=== PATIENT | male | born 1980 | race Two or more races ===

== ENCOUNTER 2016-09-06 05:08 | Inpatient (IN) | payer MEDICAID ==
[~2016-09-06] VITALS: Ht 177.8 cm; Wt 63.1 kg
[~2016-09-06 05:08] MED LIST: INSU100I18 SQ-INSULIN; INSU100I28 SQ-INSULIN; INSU100V8 SQ; INSULIN
[2016-09-06] MEDS: SODIUM CHLORIDE 0.9% 1,000 ML IV SCH ×6 (05:20→17:20)
[2016-09-06] MEDS ORDERED: ONDANSETRON 2MG/ML, 2ML ONE (05:27)
[2016-09-06] MEDS ORDERED: SODIUM CHLORIDE 0.9% 1,000ML IVBOLUS ONE ×2 (05:30→06:00)
[2016-09-06] MEDS ORDERED: SODIUM CHLORIDE FLUSH 10ML SYR IVF ONE (05:30)
[2016-09-06] MEDS ORDERED: ONDANSETRON 2MG/ML, 2ML IVPush ONE (05:30)
[2016-09-06 06:02] LABS: HEMOGLOBIN 15.3 g/dL (13.7-18.0)
[2016-09-06 06:14] LABS: ASPARTATE AMINO TRANSFERASE 20 U/L (15-37); BLOOD UREA NITROGEN 23 mg/dL (7-18)
[2016-09-06 06:48] LABS: DAU SCREEN DISCLAIMER
[2016-09-06] MEDS ORDERED: SODIUM CHLORIDE FLUSH 10ML SYR IVF PRN (07:00)
[2016-09-06 07:10] LABS: PATH.CAST-FLAG NOT PRESENT; SPERM-FLAG NOT PRESENT; SRC-FLAG NOT PRESENT; XTAL-FLAG NOT PRESENT; YLC-FLAG NOT PRESENT
[2016-09-06] MEDS ORDERED: MORPHINE SULFATE 4 MG/ML, 1ML IVPush PRN (08:00)
[2016-09-06] MEDS: POTASSIUM CHLORIDE 10 MEQ in SODIUM CHLORIDE 0.9% 1,000 ML IV SCH ×3 (08:00→22:21)
[2016-09-06] MEDS ORDERED: HYDROcodone/APAP 5/325 TABLET PO PRN (08:00)
[2016-09-06] MEDS ORDERED: ONDANSETRON 2MG/ML, 2ML IVP PRN (08:00)
[2016-09-06] MEDS ORDERED: GUAIFENESIN/DM 200-20MG, 10ML UDC PO PRN (08:00)
[2016-09-06] MEDS ORDERED: TEMAZEPAM 15 MG CAPSULE PO PRN (08:00)
[2016-09-06] MEDS: FAMOTIDINE 20 MG/2 ML IV SCH ×2 (08:36→22:02)
[2016-09-06] MEDS: INSULIN ASPART 100 UNITS/ML, PEN SQ-INSULIN SCH ×4 (08:36→19:27)
[2016-09-06] MEDS: ENOXAPARIN 40 MG/0.4 ML SQ SCH (08:38)
[2016-09-06 11:00] LABS: BLOOD UREA NITROGEN 17 mg/dL (7-18)
[2016-09-06 19:30] VITALS: BP 126/69
[2016-09-06] MEDS ORDERED: INSULIN ASPART 100 UNITS/ML, PEN SQ-INSULIN ONE (20:00)
[2016-09-06] MEDS ORDERED: SODIUM CHLORIDE 0.9%, 500ML IVBOLUS ONE (20:00)
[2016-09-06] MEDS: INSULIN DETEMIR 100 UNITS/ML, PEN SQ-INSULIN SCH (22:02)
[2016-09-07 02:03] VITALS: BP 115/71
[2016-09-07] MEDS: POTASSIUM CHLORIDE 10 MEQ in SODIUM CHLORIDE 0.9% 1,000 ML IV SCH ×2 (04:03→12:32)
[2016-09-07] MEDS: FAMOTIDINE 20 MG/2 ML IV SCH ×2 (07:47→19:47)
[2016-09-07] MEDS: INSULIN ASPART 100 UNITS/ML, PEN SQ-INSULIN SCH ×4 (07:47→19:48)
[2016-09-07] MEDS: ENOXAPARIN 40 MG/0.4 ML SQ SCH (07:47)
[2016-09-07 08:00] VITALS: BP 137/79
[2016-09-07 10:06] LABS: BLOOD UREA NITROGEN 11 mg/dL (7-18)
[2016-09-07 13:00] VITALS: BP 132/72
[2016-09-07 19:19] VITALS: BP 126/68
[2016-09-07] MEDS: INSULIN DETEMIR 100 UNITS/ML, PEN SQ-INSULIN SCH (19:48)
[2016-09-08 01:35] VITALS: BP 128/69
[2016-09-08] MEDS: POTASSIUM CHLORIDE 10 MEQ in SODIUM CHLORIDE 0.9% 1,000 ML IV SCH (02:47)
[2016-09-08 05:14] LABS: HEMOGLOBIN 12.3 g/dL (13.7-18.0)
[2016-09-08 05:19] LABS: BLOOD UREA NITROGEN 17 mg/dL (7-18)
[2016-09-08] MEDS: INSULIN ASPART 100 UNITS/ML, PEN SQ-INSULIN SCH ×4 (07:00→21:53)
[2016-09-08 07:09] VITALS: BP 127/68
[2016-09-08] MEDS: ENOXAPARIN 40 MG/0.4 ML SQ SCH (07:58)
[2016-09-08] MEDS: FAMOTIDINE 20 MG/2 ML IV SCH (07:58)
[2016-09-08 11:50] LABS: BLOOD UREA NITROGEN 12 mg/dL (7-18)
[2016-09-08] MEDS ORDERED: POTASSIUM CHLORIDE 20 MEQ TAB.ER.PRT PO ONE (13:00)
[2016-09-08 13:25] VITALS: BP 130/72
[2016-09-08 19:22] VITALS: BP 116/67
[2016-09-08] MEDS: INSULIN DETEMIR 100 UNITS/ML, PEN SQ-INSULIN SCH (21:54)
[2016-09-09 01:23] VITALS: BP 122/65
[2016-09-09 07:53] VITALS: BP 126/72
[2016-09-09] MEDS: INSULIN ASPART 100 UNITS/ML, PEN SQ-INSULIN SCH ×2 (08:22→11:34)
[2016-09-09] MEDS: ENOXAPARIN 40 MG/0.4 ML SQ SCH (08:23)
[2016-09-09 10:48] LABS: BLOOD UREA NITROGEN 12 mg/dL (7-18)
[2016-09-09] MEDS ORDERED: INSU100V8 SQ (11:30)
[2016-09-09 13:21] VITALS: BP 130/80
== END 2016-09-09 14:47 | disposition home or self-care (01) | DRG 637 ==
LOC: ED 05:22 → EDIP 06:40 → 3NE 07:40 → DCLOUNGE 09-09 14:30
PROVIDERS: ADMIT Internal Medicine; ATTEND Internal Medicine
DX: E10.10 Type 1 diabetes mellitus with ketoacidosis without coma (principal); N17.0 Acute kidney failure with tubular necrosis; E87.6 Hypokalemia; F17.210 Nicotine dependence, cigarettes, uncomplicated; Z79.4 Long term (current) use of insulin; Z91.19 Patient's noncompliance with other medical treatment and regimen
CPT/HCPCS: 36415; 71010; 80048; 80053; 80307; 81001; 82010; 82800; 82947; 82962; 83036; 83690; 83735; 84100; 85025; 93005; 96374; J1815; J2405; J3480; J7030; S0028